=== PATIENT | female | born 1965 | race Caucasian/White ===

== ENCOUNTER 2016-09-26 06:45 | Day surgery (SDC) | payer OTHER ==
[2016-09-23 08:45] VITALS: BMI 31.8
[2016-09-26] VITALS (16 sets, daily range): BP systolic 120–138; BP diastolic 62–80; PULSE 78–92; RESP 13–24; Ht 175.3 cm; Wt 97.0 kg
[~2016-09-26] VITALS: Ht 175.3 cm; Wt 97.0 kg
[2016-09-26] MEDS ORDERED: CEFAZOLIN 2 GM/50 ML (PMX) 50 ML IVPB ONE (07:00)
[2016-09-26] MEDS ORDERED: SOD CHLORIDE 0.9% 1,000 ML IV SCH (07:00)
[2016-09-26] MEDS ORDERED: OMEP20CA16 PO (07:26)
[2016-09-26] MEDS ORDERED: BUPIVACAINE 0.25% (MPF) 10 ML 10 ML VIAL ONE (08:22)
--- NOTE | 2016-09-26 08:33 | RADRPT ---
PROCEDURE: XR Chest 1 View. CLINICAL INDICATION: Abnormal breath sounds, preop. TECHNIQUE: AP view of the chest was obtained. COMPARISON: None. FINDINGS: The cardiomediastinal silhouette is within normal limits. No consolidations are identified. No pneu mothorax is seen. Osseous structures are intact. IMPRESSION: No visualized active disease. RPTAT: AA .Nam Linares MD, Date Time Electronically viewed and signed by .Nam Linares MD, on 09/26/2016 08:33 .P/
[2016-09-26] MEDS ORDERED: ROCURONIUM 50 MG INJ ONE (08:41)
[2016-09-26] MEDS ORDERED: PROPOFOL 20 ML ONE (08:41)
[2016-09-26] MEDS ORDERED: MIDAZOLAM 1 MG/ML 2 ML INJ ONE (08:41)
[2016-09-26] MEDS ORDERED: SUCCINYLCHOLINE CHLORIDE 100 MG/5 ML SYG IV ONE (08:41)
[2016-09-26] MEDS ORDERED: LIDOCAINE 1% (MDV) 20 ML INJ ONE (08:41)
[2016-09-26] MEDS ORDERED: FENTAnyl 50 MCG/ML VIAL ONE (08:41)
[2016-09-26] MEDS ORDERED: CEFAZOLIN 1 GM INJ ONE (08:53)
[2016-09-26] MEDS ORDERED: DEXAMETHASONE 4 MG/ML 1 ML INJ ONE (08:55)
[2016-09-26] MEDS ORDERED: FAMOTIDINE 20 MG INJ ONE (08:55)
[2016-09-26] MEDS ORDERED: ONDANSETRON 4 MG INJ ONE (08:55)
[2016-09-26] MEDS ORDERED: ROPIVACAINE 0.5 % 30 ML VIAL ONE (09:17)
[2016-09-26] MEDS ORDERED: SUGAMMADEX SODIUM 200 MG/2 ML VIAL IV ONE (09:17)
--- NOTE | 2016-09-26 09:26 | OPR ---
Date/Time of Note Date/Time of Note DATE: 09/26/16 TIME: 09:22 Operative Report Procedure Date: Sep 26, 2016 Preoperative Diagnosis symptomatic gallstones Postoperative Diagnosis same Operation Performed 1. lap júnior 2. therapeutic injection [place] subctaneous [place]caine cpt 91244 Surgeon: Sheryl HSU Specimens gallbladder Indications This is a 51-year-old female with symptomatic gallstones she required surgical excision. Risks alternatives benefits and percent were discussed with the patient. Patient expresses understanding consents to the operation. Procedure Description Patient is taken to the OR and prepped and draped in usual sterile fashion. Surgical timeout was performed IV antibiotics are given. Infraumbilical transverse incision is made with a 15 blade. Dissection cautery was carried onto the fascia. Fascia is grasped with Chattaroy's and divided with curved Cardozo scissors. 0 Vicryl U stitch is placed into the fascia. Balloon Jeronimo trocar is introduced. Pneumoperitoneum is established. Mid epigastric 12 mm optical trocar is placed under direct visualization. Right upper quadrant and right upper flank 5 mm optical trocar placed under direct visualization. Upon initial inspection there are some adhesions to the gallbladder which were taken down bluntly. Lateral dissection was performed. The cystic duct is identified. The critical view is established. The cystic duct is divided using a 35 mm echelon vascular stapler. Clips are used to reinforce the staple line. The cystic artery was divided using 2 clips proximally clipped distally. Gallbladder was taken off the gallbladder bed. There is good hemostasis. Gallbladder is retrieved using an Endo Catch bag. Minimal spillage occurred suction irrigation is used. Ports removed under direct visualization. 0 Vicryl U stitch was tied down. Skin is closed using skin magdalena. Therapeutic injection of incision with subcutaneous Marcaine was performed. Dry dressings were applied. Sheryl HSU Sep 26, 2016 09:26
[2016-09-26] MEDS ORDERED: HYDROCODONE/APAP (5/325) TAB PO ONE ×2 (09:30)
[2016-09-26] MEDS: HYDROmorphONE (0.2 MG/ML) 10ML SYG IV PRN ×5 (09:54→10:23)
[2016-09-26] MEDS ORDERED: MEPERIDINE 25 MG INJ IV PRN (10:00)
[2016-09-26] MEDS ORDERED: DIPHENHYDRAMINE 50 MG INJ IV PRN (10:00)
[2016-09-26] MEDS ORDERED: ONDANSETRON 4 MG INJ IV PRN (10:00)
[2016-09-26] MEDS ORDERED: PROCHLORPERAZINE 10 MG INJ IV PRN (10:00)
[2016-09-26] MEDS ORDERED: HYDROmorphONE (0.2 MG/ML) 10ML SYG IV PRN (10:00)
--- NOTE | 2016-09-27 17:34 | RADRPT ---
Vent Rate: 78 bpm RR Interval: 0 msec [place] Interval: 200 msec QRS Duration: 84 msec QT Interval: 372 msec QTC Interval: 424 msec P-R-T [place]: 50 - 63 - 32 degrees Normal sinus rhythm Normal ECG Electronically Signed By: Shakeel Villegas [id number]
== END 2016-09-26 12:10 | disposition home or self-care (01) ==
LOC: SDS 06:45
PROVIDERS: ATTEND Surgery
DX: K80.10 Calculus of gallbladder with chronic cholecystitis without obstruction (principal)
CPT/HCPCS: 47562; 71010; 84703; 88304; 93005; J0690; J1100; J1170; J2175; J2250; J2405; J2795; J3010; J7999